=== PATIENT | female | born 1960 | race Caucasian/White ===

== ENCOUNTER 2019-10-17 14:10 | Inpatient (IN) ==
[2019-10-17] MEDS ORDERED: NS 1,000 ML IV ONE ×3 (14:20→15:38)
[2019-10-17] MEDS ORDERED: MAXIPIME 1 GM in NS 50 ML IV ONE (14:29)
[2019-10-17] MEDS ORDERED: VANCOMYCIN 1 GM/NS 1 GM/250 ML IVPB IV ONE (14:29)
[2019-10-17] MEDS ORDERED: OFIRMEV 1000 MG/ISOTONIC SOLN 1,000 MG/100 ML BOTTLE IV ONE (14:41)
--- NOTE | 2019-10-17 14:41 | EKG Report ---
Test Performed on : 10/17/2019 2:31:26 PM Test Reason : AMS Blood Pressure : / mmHG Vent. Rate : 125 BPM Atrial Rate : 125 BPM P-R Int : 144 ms QRS Dur : 100 ms QT Int : 346 ms P-R-T Axes : 000 -60 080 degrees QTc Int : 499 ms Sinus tachycardia. Left anterior fascicular block Inferior infarct , age undetermined ST & T wave abnormality, consider lateral ischemia Abnormal ECG No previous ECGs available Unconfirmed Result
--- NOTE | 2019-10-17 14:54 | Diag Imaging Result Doc PS360 ---
EXAM: CHEST-PORTABLE INDICATION: AMS + FEVER TECHNIQUE: One view COMPARISON: None. FINDINGS: There are a couple of calcified granulomata in the right mid and upper lung zone. The lungs are grossly clear. There is no discrete pleural fluid collection or pneumothorax. The cardiomediastinal silhouette and central vasculature are grossly unremarkable. IMPRESSION: No evidence of acute pathology by plain radiograph. Electronically signed by Gerhard Dennison 10/17/2019 2:51 PM
--- NOTE | 2019-10-17 15:06 | Diag Imaging Result Doc PS360 ---
EXAM: CT HEAD W/O CONTRAST HISTORY: AMS TECHNIQUE: CT head without intravenous contrast COMPARISON: None. FINDINGS: No parenchymal hemorrhage. No epidural or subdural hematoma. No subarachnoid hemorrhage. No mass identified on this noncontrasted exam. No hydrocephalus. No sinus opacification. IMPRESSION: No hemorrhage. Negative brain CT without contrast. This exam was performed using automated exposure control, adjustment of mA or kV according to patient size, and/or use of iterative reconstruction technique. Electronically signed by Jori Bui 10/17/2019 3:04 PM
[2019-10-17 15:32] LABS: URINE SOURCE CATH
[2019-10-17 15:43] LABS: BILIRUBIN URINE NEGATIVE (NEGATIVE); BLOOD URINE NEGATIVE (NEGATIVE); COLOR YELLOW; GLUCOSE URINE NEGATIVE (NEGATIVE); KETONE URINE NEGATIVE (NEGATIVE); LEUKOCYTES URINE SMALL (NEGATIVE); NITRITE URINE NEGATIVE (NEGATIVE); PROTEIN URINE NEGATIVE (NEGATIVE); SP GRAVITY URINE 1.007; TURBIDITY URINE HAZY (CLEAR); UROBILINOGEN URINE NORMAL (NORMAL)
[2019-10-17 15:46] LABS: UR EPITHELIAL CELLS <10 /HPF (<10); URINE BACTERIA 4+ /HPF; URINE RBC <10 /HPF (<10); URINE WBC <10 /HPF (<10)
[2019-10-17 15:46] LABS: BASO# 0.03 X1000 (0.0-0.2); BASO% 0.2 % (0.0-0.8); HEMATOCRIT 47.2 % (37.0-47.0); HEMOGLOBIN 16.2 g/dL (12.0-16.0); IMM GRAN# 0.06 X1000 (0.0-0.04); IMM GRAN% 0.4 % (0.0-0.5); LYMPH# 1.59 X1000 (1.2-3.4); LYMPH% 10.9 % (20.5-51.1); MCH 30.7 PG (27-31); MCHC 34.3 g/dL (33-37); MCV 89.4 FL (81-99); MONO# 0.49 X1000 (0.11-0.59); MONO% 3.4 % (1.7-9.3); MPV 11.8 FL (7.4-10.4); NEUT# 12.44 X1000 (1.4-6.5); NEUT% 85.1 % (42.2-75.2); PLT 248 X1000 (130-400); RBC 5.28 XMIL (4.2-5.4); RDW 13.9 % (11.5-14.5); WBC 14.61 X1000 (4.8-10.8)
[2019-10-17 15:55] LABS: ALB/GLOB RATIO 1.2; ALBUMIN 3.8 g/dL (3.5-5.0); CALCIUM 9.5 mg/dL (8.8-10.2); CREATININE 1.9 mg/dL (0.5-0.9); MAGNESIUM 1.2 mg/dL (1.5-2.7); POTASSIUM 3.2 mmol/L (3.5-5.1); TOTAL BILIRUBIN 0.78 mg/dL (0.20-1.00)
[2019-10-17] MEDS: LEVOPHED 8 MG in D5 1/2 NS 250 ML IV SCH (15:58)
[2019-10-17] MEDS ORDERED: MAGNESIUM SULFATE 4 GM/S.W.I. 4 GM/100 ML IVPB IV ONE (16:11)
[2019-10-17] MEDS ORDERED: NS + KCL 40 MEQ 1,000 ML IV SCH (16:15)
--- NOTE | 2019-10-17 16:32 | PROVIDER DOCUMENTATION ---
This chart was entered by Soledad Pablo Scribe, acting as scribe for Norah Westbrook MD. HPI-General Adult - General Stated Complaint: CONFUSION Time Seen by Provider: 10/17/19 14:10 Source: family, EMS Allergies/Adverse Reactions: Patient Allergies Allergy/AdvReac Type Severity Reaction Status Date / Time No Known Allergies Allergy Verified 03/05/18 09:14 Home Medications: Home Medication List Medication Instructions Recorded Confirmed Last Taken Type Furosemide [Lasix] 40 mg PO DAILY 06/14/16 10/17/19 03/04/18 21:00 History Levothyroxine [Synthroid] 75 microgm PO DAILY 06/14/16 10/17/19 03/04/18 21:00 History Pantoprazole [Protonix] 40 mg PO DAILY 06/14/16 10/17/19 03/04/18 21:00 History Paroxetine [Paxil] 20 mg PO DAILY 06/14/16 10/17/19 03/04/18 21:00 History SIMVAstatin [Zocor] 20 mg PO QHS 06/14/16 10/17/19 03/04/18 21:00 History Sitagliptin Phosphate [Januvia] 100 mg PO DAILY 06/14/16 10/17/19 03/04/18 21:00 History Benztropine Mesylate 1 tab PO BID 10/17/19 10/17/19 Unknown History Calcium Carbonate/Vitamin D3 1 tab PO DAILY 10/17/19 10/17/19 Unknown History [Oyster Shell Calcium-Vit D Tab] Febuxostat 40 mg PO DAILY 10/17/19 10/17/19 Unknown History Montelukast Sodium 1 tab PO QHS 10/17/19 10/17/19 Unknown History Potassium Chloride E.r. [Klor-Con] 2 tab PO DAILY 10/17/19 10/17/19 Unknown History Pregabalin [Lyrica] 1 tab PO QHS 10/17/19 10/17/19 Unknown History Ropinirole HCl 1 tab PO QHS 10/17/19 10/17/19 Unknown History - History of Present Illness -Gen Adult Nature of Presenting Problems: 59 y/o female presents to ED with AMS onset today. Family of pt reports they found her altered in her home. EMS states pt had temperature of 102 en route to ED. Pt is alert and oriented x 0. Location of Pain/Injury: reports: none Pain Radiation: reports: no radiation Quality of Pain: reports: none Severity: reports: moderate Onset/Duration: reports: this morning Timing: reports: still present Context/Activities at Onset: reports: none Modifying Factors: improves with: nothing Associated Symptoms: reports: other (AMS) Similar Symptoms Previously?: No Recently seen or treated by another doctor?: No Review of Systems - Adult - REVIEW OF SYSTEMS - ADULT ROS:: ROS per family Constitutional: reports: other (AMS). denies: chills, fever Eyes: reports: no symptoms reported Ears, Nose, Mouth & Throat: reports: no symptoms reported Cardiovascular: reports: no symptoms reported Respiratory: reports: no symptoms reported Gastrointestinal: reports: no symptoms reported Genitourinary: reports: no symptoms reported Musculoskeletal: reports: no symptoms reported Integumentary: reports: no symptoms reported Neurological: reports: no symptoms reported Psychiatric: reports: no symptoms reported Endocrine: reports: no symptoms reported Hematologic/Lymphatic: reports: no symptoms reported Allergic/Immunologic: reports: no symptoms reported All Other Systems: Reviewed and Negative Past History - Adult - PAST MEDICAL HISTORY-ADULT Review of Records: reports: Old Records Reviewed, Nursing Assessment Review, Medications Reviewed Major Childhood Illnesses: reports: denies history Cardiovascular: reports: HTN Neurological: reports: CVA Endocrine/Immune: reports: Diabetes, thyroid disorder (hypo) - PRIOR SURGERIES/PROCEDURES Surgical/Procedure History: reports: none - IMMUNIZATION STATUS Childhood Immunizations: See Nurse Assessment Flu Vaccine: See Nurse Assessment - FAMILY HISTORY Family History: reviewed, not pertinent - SOCIAL HISTORY Smoking: greater than 1 pack/day Provider spent 3-5 mins advising pt. on dangers of tobacco.: Discussed manners to quit use, and f/u contacts for add'l counseling. Substance Use: none/never Alcohol Use Frequency: never Living Situation: alone Physical Exam-General - PHYSICAL EXAM-ADULT Initial Vital Signs Reviewed: Yes - CONSTITUTIONAL General Appearance: alert, no apparent distress, other (minimal talking; attempts to follow some commands; warm to touch; oriented x 0) - EYES Eyes: PERRL/EOMI, pink conjunctivae - HEAD, EARS, NOSE, MOUTH & THROAT HENMT: normocephalic/atraumatic, moist mucous membranes, normal ENT inspection - NECK Neck: full range of motion - RESPIRATORY Respiratory: lungs clear, normal breath sounds - CARDIOVASCULAR Cardiovascular: normal peripheral pulses, regular rate, rhythm - GASTROINTESTINAL (ABDOMEN) Abdominal Exam: normal bowel sounds, soft - MUSCULOSKELETAL Back Exam: normal inspection Extremity: normal range of motion - SKIN Integumentary: normal color, warm/dry - NEUROLOGIC Neurologic: other (minimal talking; attempts to follow some commands; oriented x 0) - PSYCHIATRIC Psych/Mental Status: other (minimal talking; attempts to follow some commands; oriented x 0) Progress - PLAN OF CARE/RESULTS Progress/Plan/Lab Results: Laboratory Tests 10/17/19 10/17/19 10/17/19 14:27 15:11 15:11 WBC 14.61 H RBC 5.28 Hgb 16.2 H Hct 47.2 H MCV 89.4 MCH 30.7 MCHC 34.3 RDW Std Deviation 13.9 Plt Count 248 MPV 11.8 H Immature Gran % (Auto) 0.4 Neut % (Auto) 85.1 H Lymph % (Auto) 10.9 L [place] % (Auto) 3.4 Eos % (Auto) 0.0 Baso % (Auto) 0.2 Immature Gran # (Auto) 0.06 H Neut # (Auto) 12.44 H Lymph # (Auto) 1.59 [place] # (Auto) 0.49 Eos # (Auto) 0.00 Baso # (Auto) 0.03 Sodium 140 Potassium 3.2 L Chloride 98 Carbon Dioxide 23 L Anion Gap 19 BUN 12 Creatinine 1.9 H Estimated GFR/1.73 m2 27 BUN/Creatinine Ratio 6 Glucose 191 H POC Glucose 198 H Calculated Osmolality 284 Calcium 9.5 Magnesium 1.2 L Total Bilirubin 0.78 AST 27 ALT 13 Alkaline Phosphatase 100 Total Protein 7.0 Albumin 3.8 Globulin 3.2 Albumin/Globulin Ratio 1.2 Plasma Lactate Urine Source Urine Color Urine Turbidity Urine pH Ur Specific [place] Urine Protein Ur Glucose (Stick) Ur Ketones (Stick) Urine Blood Urine Nitrite Urine Bilirubin Urobilinogen Dipstick Urine Leukocytes Urine WBC (Auto) Urine RBC (Auto) U Epithel Cells (Auto) Urine Bacteria (Auto) 10/17/19 10/17/19 15:11 15:25 WBC RBC Hgb Hct MCV MCH MCHC RDW Std Deviation Plt Count MPV Immature Gran % (Auto) Neut % (Auto) Lymph % (Auto) [place] % (Auto) Eos % (Auto) Baso % (Auto) Immature Gran # (Auto) Neut # (Auto) Lymph # (Auto) [place] # (Auto) Eos # (Auto) Baso # (Auto) Sodium Potassium Chloride Carbon Dioxide Anion Gap BUN Creatinine Estimated GFR/1.73 m2 BUN/Creatinine Ratio Glucose POC Glucose Calculated Osmolality Calcium Magnesium Total Bilirubin AST ALT Alkaline Phosphatase Total Protein Albumin Globulin Albumin/Globulin Ratio Plasma Lactate 4.0 H* Urine Source CATH Urine Color YELLOW Urine Turbidity HAZY Urine pH 6.0 Ur Specific [place] 1.007 Urine Protein NEGATIVE Ur Glucose (Stick) NEGATIVE Ur Ketones (Stick) NEGATIVE Urine Blood NEGATIVE Urine Nitrite NEGATIVE Urine Bilirubin NEGATIVE Urobilinogen Dipstick NORMAL Urine Leukocytes SMALL A Urine WBC (Auto) <10 Urine RBC (Auto) <10 U Epithel Cells (Auto) <10 Urine Bacteria (Auto) 4+ Orders Category Date Time Status Nursing [Misc. NRSG Communication Order] DIRECTED Care 10/17/19 14:30 Active Nursing- Obtain EKG ONCE Care 10/17/19 14:22 Active NPO Diet 10/17/19 14:21 Active CHEST-PORTABLE [RAD] Stat Exams 10/17/19 14:[address] HEAD W/O CONTRAST [CT] Stat Exams 10/17/19 14:21 Completed BLOOD CULTURE [BLDCUL] Stat Lab 10/17/19 15:11 Results CBC WITH ELECTRONIC DIFF [HEME] Stat Lab 10/17/19 15:11 Completed CK PROFILE [SP CHEM] Stat Lab 10/17/19 15:11 Received COMPREHENSIVE METABOLIC PANEL [CHEM] Stat Lab 10/17/19 15:11 Completed INFLUENZA SCREEN A/B Stat Lab 10/17/19 16:25 Uncollected LACTATE, PLASMA [CHEM] Q3H Lab 10/17/19 18:11 Uncollected LACTATE, PLASMA [CHEM] Q3H Lab 10/17/19 21:11 Uncollected LACTATE, PLASMA [CHEM] Stat Lab 10/17/19 15:11 Completed MAGNESIUM [CHEM] Stat Lab 10/17/19 15:11 Completed PROCALCITONIN [KU] Stat Lab 10/17/19 16:00 Received PROTIME WITH INR [COAG] Stat Lab 10/17/19 15:11 Received PTT [COAG] Stat Lab 10/17/19 15:11 Received TROPONIN T Stat Lab 10/17/19 15:11 Received URINALYSIS W/POSS RFLX CULT [URINALYSIS] Stat Lab 10/17/19 15:25 Completed URINE CULTURE [RM] Routine Lab 10/17/19 15:25 Received 0.9% Sodium Chloride Inj [Ns] 1,000 ml Med 10/17/19 14:20 Discontinued IV 999 mls/hr 0.9% Sodium Chloride Inj [Ns] 1,000 ml Med 10/17/19 15:25 Discontinued IV 999 mls/hr 0.9% Sodium Chloride Inj [Ns] 1,000 ml Med 10/17/19 15:38 Active IV 999 mls/hr Acetaminophen [Ofirmev 1000 mg/Isotonic Soln] Med 10/17/19 14:41 Discontinued 1,000 mg in 100 ml IV NOW CefEPIME [Maxipime] 1 gm Med 10/17/19 14:29 Discontinued 0.9% Sodium Chloride Inj [Ns] 50 ml IV NOW Dextrose 5%-0.45% NaCl Inj [D5 / Ns] 250 ml Med 10/17/19 15:45 Active Norepinephrine [Levophed] 8 mg IV As Directed mls/hr Magnesium Sulfate 4 gm/S.w.i. [Magnesium Sulfate 4 gm/S Med 10/17/19 16:11 Active .w.i] 4 gm in 100 ml IV NOW Ns + KCl 40 Meq 1,000 ml Med 10/17/19 16:15 Active IV 125 mls/hr Vancomycin 1 gm/Ns Med 10/17/19 14:29 Discontinued 1 gm in 250 ml IV NOW Oxygen Device Stat Oth 10/17/19 15:52 Active EKG [EKG] Stat Ther 10/17/19 14:22 Draft Vital Signs - 24 hr 10/17/19 14:28 10/17/19 15:14 10/17/19 15:30 Temperature 106.0 F H 103.6 F H Pulse Rate 129 H 105 H 100 H Respiratory Rate 42 H 28 H 29 H Blood Pressure 89/61 68/50 62/45 O2 Sat by Pulse Oximetry 90 L 93 L 93 L 10/17/19 15:44 10/17/19 15:46 10/17/19 16:01 Temperature 102.4 F H Pulse Rate 92 H 90 83 Respiratory Rate 25 H 25 H 22 Blood Pressure 55/40 57/40 58/33 O2 Sat by Pulse Oximetry 93 L 94 L 93 L 10/17/19 16:10 10/17/19 16:11 Temperature 100.9 F H 100.8 F H Pulse Rate 80 Respiratory Rate 20 Blood Pressure 84/60 O2 Sat by Pulse Oximetry 98 Result Diagrams: 10/17/19 15:11 10/17/19 15:11 - EKG 1 Time of EKG reading by physician:: 14:31 EKG Read and Signed by:: Norah Westbrook EKG Interpretation (*Must complete 3 of following elements*): Abnormal Rate: 125 Rhythm: Sinus tach [place]: normal QRS: other (L anterior fascicular block; inferior infarct) OR Interval: normal ST Wave: non-specific ST changes (consider lateral ischemia) - XRAY 1 XRAY Study: Chest Impression: See EMR Report ([facility] - [address], [address], [place] [address] [facility] - [address] [place] [address] Department of Imaging Patient: MEREDITH ROSALES Date: 10/17/19#: [id number] : 1960DM Status: PRE ERAcct#: [id number] Age/Sex: 59/FRoom/Bed: Loc: ED Ordering Physician: Norah Westbrook MD Family Physician: Tana Lopes Reason for Procedure: AMS + FEVER Signed EXAM: CHEST-PORTABLE INDICATION: AMS + FEVER TECHNIQUE: One view COMPARISON: None. FINDINGS: There are a couple of calcified granulomata in the right mid and upper lung zone. The lungs are grossly clear. There is no discrete pleural fluid collection or pneumothorax. The cardiomediastinal silhouette and central vasculature are grossly unremarkable. IMPRESSION: No evidence of acute pathology by plain radiograph. Electronically signed by Gerhard Dennison 10/17/2019 2:51 PM 10/17/19 1451 Interpreting Physician: Gerhard Dennison MD Dictated Date/Time: 10/17/19 1450 cc: Norah Westbrook MD; Tana Lopes) - CT/MRI 1 CT Study: Head Impression: See EMR Report - CONSULTS/PCP/HOSPITALIST Notification #1 *Consult/PCP/Hospitalist*: Hospitalist Time Discussed: 16:31 Consult Disposition: Admit Departure - Departure Date of Disposition Decision: 10/17/19 Time of Disposition Decision: 16:31 DIAGNOSIS: UTI (urinary tract infection), Septic shock, Hypokalemia, Hypomagnesemia Sepsis Qualifiers: Sepsis type: sepsis due to unspecified organism Sepsis acute organ dysfunction status: unspecified Qualified Code(s): A41.9 - Sepsis, unspecified organism Disposition: ADMITTED INPATIENT 09 Certified Medical Emergency: Emergent Condition: Serious - Critical Care Note This patient required my direct & personal management of CC.: Yes Total Time (mins): 37 Critical Care Statement: This patient required my direct personal management to treat or rule out processes, the absence of which, could potentiallly result in sudden, clinically significant life or limb threatening deterioration. Attestation - Physician/ IVELISSE Attestation Patient care was provided by Advanced Practice Provider:: No The physician spent face to face time with patient:: Yes Advanced Practice Provider documentation review:: Supervising physician onsite and consulted in the evaluation and care of this patient. The physician did have a face to face encounter with the patient. This chart was documented by the indicated scribe, (Soledad Pablo Scribe) and accurately reflects the services I performed and decisions made by me, Norah Westbrook MD, as attested by the provider's signature.
[2019-10-17 16:46] LABS: INR 1.22; PROTIME 15.6 Seconds (11.0-16.0); PTT 34.7 Seconds (22.3-41.8)
[2019-10-17] MEDS ORDERED: ZOFRAN IV PRN (18:11)
[2019-10-17] MEDS ORDERED: TYLENOL PO PRN (18:11)
[2019-10-17 20:00] LABS: T4 13.83 ug/dL (4.60-12.00)
[2019-10-17] MEDS: SINGULAIR PO SCH (21:00)
[2019-10-17] MEDS ORDERED: PRILOSEC PO SCH (21:00)
[2019-10-17] MEDS: ZOSYN 3.375 GM in NS 50 ML IV SCH (21:05)
[2019-10-17] MEDS: ZYVOX 600 MG/D5W 600 MG/300 ML IVPB IV SCH (21:13)
[2019-10-18] MEDS: LEVOPHED 8 MG in D5 1/2 NS 250 ML IV SCH (00:11)
[2019-10-18] MEDS: PROTONIX IV SCH ×2 (00:25→20:17)
[2019-10-18] MEDS: SODIUM CHLORIDE 0.9% INJ SCH (00:25)
--- NOTE | 2019-10-18 03:51 | HISTORY AND PHYSICAL ---
HISTORY OF PRESENT ILLNESS: Ms. Saeed is a 59-year-old who her mother checks on her every day, was fine yesterday, apparently normal state of health. She is wheelchair bound because of a CVA. She came in this morning and she was stooped over, not very responsive, very lethargic, and she continued to stay very drowsy. When she came into the emergency room this afternoon, her temperature was 106 degrees. They deny any signs of chest pain or other earlier signs of fever or chills. No sign of seizures or tonic-clonic activity or incontinence of bowel or bladder. PAST MEDICAL HISTORY: 1. Hyperglycemia. She has diabetes mellitus type 2, controlled on diet. Her mother checks her sugars. 2. Hypertriglyceridemia. 3. Postmenopausal. 4. She does smoke, tobacco dependence. 5. Depression. Mother says she had a breakdown about 32 years ago, a mental breakdown. 6. Diabetes mellitus type 2. 7. Apparently she has a history of heart disease. I do not know what all that entails. 8. I think she has hypothyroidism. 9. Interstitial cystitis. 10. Osteoporosis. 11. She has had a CVA, she had a large CVA, and she collapsed in the bathroom a couple years ago and then had another small one I think last summer. PAST SURGICAL HISTORY: Status post cholecystectomy, status post hysterectomy. ALLERGIES: The patient has no known drug allergies. FAMILY HISTORY: They deny any known history of cardiac, renal, pulmonary, any specific illnesses. REVIEW OF SYSTEMS: Mainly obtained from the mother.General: Before today, no fever or chills that she noted, was in normal state of health. HEENT: No change in visual or hearing acuity. Respiratory: No increased work of breathing or dyspnea or cough. Cardiovascular: No chest pain or tachy palpitation. Gastrointestinal/Genitourinary: She does not know of any change in her bowels or bladder. No gross hematuria, no gross hematochezia. Musculoskeletal/Neurologic: No focal complaints. PHYSICAL EXAMINATION: VITAL SIGNS: Today in the emergency room, temperature 99.5 degrees. When she first came in it was 106. Pulse 80, respirations 22, blood pressure 82/51. HEENT: Pupils are equal. Oral and nasal mucosa unremarkable. GENERAL: She is still very lethargic. She is arousable. She will answer simple questions. She does not know where she is. She is oriented to person only. I do not see any focal neurologic deficits, but she is very lethargic. Pulse 80, respirations 20, blood pressure 82/51. They did start her on Levophed. Weight is 185 pounds, height 5 feet 4 inches. LUNGS: Clear anterolateral. CARDIOVASCULAR: Regular rhythm and rate. No distended neck veins. She has been told that I think her right carotid was 100% occluded. I do not hear any bruits on the left. ABDOMEN: Soft, nondistended, nontender. Positive bowel sounds. No pedal edema. SKIN: No skin rashes appreciated. NECK: Supple. No adenopathy or thyromegaly. LABORATORY DATA: White count is 14,610, hematocrit 47, platelet count 248,000. Sodium 140, potassium 3.2, chloride 98, BUN 12, creatinine 1.9, blood sugar was 191, calcium 9.5, AST 27, ALT 13, alkaline phosphatase was 100, albumin 3.8. Lactate level is high at 4. Prothrombin time 15.6, PTT was 34. Urinalysis unremarkable. Chest x-ray, no evidence of acute pathology. No sign of infiltrate. Head CT without contrast, no hemorrhage. Negative brain CT. Her urine was 4+ bacteria, less than 10, no white blood cells. The patient was given some magnesium, started on norepinephrine or Levophed and given some potassium as well. ASSESSMENT AND PLAN: 1. Appears to be sepsis with infection, urinary tract. She has 4+ bacteria. I do not see any other source at this point. We will put her on broad-spectrum antibiotic. She has no known drug allergies, so I will plan to probably put her on Zosyn. Actually, I will use Zosyn and Zyvox. Her creatinine was 1.9. 2. Acute kidney injury. Looking at her previous creatinine, I do not know that we have any measurements of it, but it was at 1.9, and I am assuming represents some acute kidney injury. 3. Hypotension, elevated lactate consistent with sepsis. We are going to need to give her quite a bit of volume. She does not have a history of congestive heart failure that I am aware of, so we will run fluids at 125 mL an hour. They are using Levophed right now to help keep systolic pressure greater than 90. 4. History of cerebrovascular accidents. She apparently she has 100% right carotid blockage. 5. Diabetes mellitus type 2. We will check pattern sugars. 6. History of hypertension. 7. History of primary hypothyroidism. We will check T4 and TSH and give her thyroid IV, thyroid supplement IV. 8. She has a history of mental breakdown and is on medications for her depression. MEDICATIONS: Her medications at home, she is on Januvia 100 mg daily; we will hold that for now. She is on Synthroid 75 mcg a day. She is on febuxostat 40 degrees mg daily. She takes Paxil 20 mg a day, Lyrica 1 tablet every night at bedtime, ropinirole 1 tablet every night at bedtime, Zocor 20 mg every night at bedtime. LABS TO OBTAIN: On her lab, we need to check a urine drug screen. I am going to check ammonia level, T4, TSH, B12 and folate. We will get a renal ultrasound in the morning. We will obtain blood cultures and urine culture. cc: Rex Grissom MD
[2019-10-18] MEDS: ZOSYN 3.375 GM in NS 50 ML IV SCH ×4 (04:33→22:53)
[2019-10-18] MEDS: SYNTHROID PO SCH (06:10)
[2019-10-18] MEDS: ZYVOX 600 MG/D5W 600 MG/300 ML IVPB IV SCH ×2 (06:10→17:42)
[2019-10-18 06:38] LABS: BASO# 0.04 X1000 (0.0-0.2); BASO% 0.2 % (0.0-0.8); EOS# 0.03 X1000 (0.0-0.7); EOS% 0.2 % (0.0-10.0); HEMATOCRIT 39.6 % (37.0-47.0); HEMOGLOBIN 13.7 g/dL (12.0-16.0); IMM GRAN# 0.06 X1000 (0.0-0.04); IMM GRAN% 0.3 % (0.0-0.5); LYMPH% 22.7 % (20.5-51.1); MCH 31.1 PG (27-31); MCHC 34.6 g/dL (33-37); MCV 89.8 FL (81-99); MONO% 11.6 % (1.7-9.3); MPV 11.6 FL (7.4-10.4); NEUT# 11.18 X1000 (1.4-6.5); PLT 218 X1000 (130-400); RBC 4.41 XMIL (4.2-5.4); RDW 13.7 % (11.5-14.5); WBC 17.21 X1000 (4.8-10.8)
[2019-10-18 06:58] LABS: ALB/GLOB RATIO 1.3; ALBUMIN 3.4 g/dL (3.5-5.0); CREATININE 1.3 mg/dL (0.5-0.9); MAGNESIUM 2.2 mg/dL (1.5-2.7); TOTAL BILIRUBIN 0.73 mg/dL (0.20-1.00)
[2019-10-18 07:05] LABS: CALCIUM 7.4 mg/dL (8.8-10.2); POTASSIUM 2.7 mmol/L (3.5-5.1)
--- NOTE | 2019-10-18 07:19 | EKG Report ---
Test Performed on : 10/18/2019 06:57:41 AM Test Reason : chest pain Blood Pressure : / mmHG Vent. Rate : 069 BPM Atrial Rate : 069 BPM P-R Int : 186 ms QRS Dur : 104 ms QT Int : 584 ms P-R-T Axes : 043 -42 039 degrees QTc Int : 625 ms Critical Test Result: Long QTc Sinus rhythm. with premature atrial complexes. Left axis deviation Nonspecific T wave abnormality Prolonged QT Abnormal ECG When compared with ECG of 17-OCT-2019 14:31, (Unconfirmed) Significant changes have occurred Confirmed by Josiah ADHIKARI, Deric Lewis ([id number]) on 10/21/2019 9:26:58 AM
--- NOTE | 2019-10-18 07:30 | Diag Imaging Result Doc PS360 ---
EXAM: CHEST-PORTABLE INDICATION: sepsis TECHNIQUE: One view COMPARISON: 10/17/2019 FINDINGS: The lungs remain grossly clear. No new consolidation is identified. There is no discrete pleural fluid collection or pneumothorax. Cardiac silhouette is stable. IMPRESSION: Stable chest with no definite acute pathology by plain radiograph. Electronically signed by Gerhard Dennison 10/18/2019 7:27 AM
[2019-10-18] MEDS ORDERED: PROTONIX PO SCH (09:00)
[2019-10-18] MEDS: KLOR-CON PO SCH (09:03)
--- NOTE | 2019-10-18 13:56 | PROGRESS NOTE ---
DATE: 10/18/2019 Ms. Saeed feels much better. She is awake and alert. She is requesting food. She is hungry. OBJECTIVE: She remains afebrile, temperature 97.9 degrees, pulse 59, respirations 20, blood pressure 103/53. Pupils are equal and round.Lungs: Clear in all lung helms. Cardiovascular: Regular rhythm and rate without murmur or S3. Abdomen: Soft. Skin: Warm and dry. Urine output was almost 6000 mL. Chest x-ray from this morning stable chest with no definite acute pathology. Her urine culture grew out a gram negative ange greater than 100,000. I am going to get a renal ultrasound on her. Plan to advance her diet. She presented with sepsis. I guess it most likely is urosepsis. She was given some cefepime and then we put her on Zosyn. She appears euthyroid. She is on her Synthroid 75 mcg a day. cc: Rex Grissom MD
--- NOTE | 2019-10-18 16:17 | Diag Imaging Result Doc PS360 ---
EXAM: US RENAL 2 (RETROPER) COMPLETE 10/18/2019 HISTORY: presented with urosepsis TECHNIQUE: Renal ultrasound COMMENT: The kidneys are without evidence of hydronephrosis stones or mass. There is no dilatation of the urinary bladder as there is a catheter in place. The right kidney is 11.1 x 4.8 x 4 cm the left is 9.4 x 3.9 x 5.3 cm. IMPRESSION: No evidence of obstructive uropathy or other definite abnormality. Electronically signed by Dario Lares 10/18/2019 4:14 PM
--- NOTE | 2019-10-18 16:37 | ECHO REPORT ---
ORDER DATE: 10/18/2019 PROCEDURE: 2D echocardiogram. INTERPRETING PHYSICIAN: Dr. Cardenas. ECHOCARDIOGRAPHIC MEASUREMENTS: 1. Interventricular septum 0.9. 2. Left ventricular posterior wall 0.8. 3. Diastolic diameter 4.8 cm. 4. Left atrium 3.8 cm. 5. RV 3.4 cm. SUMMARY OF THE 2-DIMENSIONAL IMAGIN. Normal left ventricular cavity size. Estimated ejection fraction of 65%. 2. Normal right ventricular cavity size and function. 3. Aortic valve leaflets were trileaflet. 4. Pulmonic valve was normal. 5. Mitral valve was normal. 6. There is no aortic stenosis or regurgitation. There is mild mitral regurgitation. 7. Mild tricuspid regurgitation. Peak velocity across the tricuspid valve was less than 2 m/sec. 8. Peak velocity across the aortic valve less than 2 m/sec. There is no aortic stenosis or regurgitation. 9. Anterior echo-free space with history of pericardial fat pad noted. There is no pericardial effusion or obvious intracardiac mass or thrombus seen. There is mild mitral regurgitation. 10. There is lipomatous hypertrophy of the interatrial septum. cc: MD Rex Rivas MD
[2019-10-18] MEDS: SINGULAIR PO SCH (20:17)
[2019-10-19] MEDS: ZOSYN 3.375 GM in NS 50 ML IV SCH ×3 (05:57→16:52)
[2019-10-19] MEDS: ZYVOX 600 MG/D5W 600 MG/300 ML IVPB IV SCH (05:58)
[2019-10-19] MEDS: SYNTHROID PO SCH (06:08)
[2019-10-19 07:09] LABS: CALCIUM 7.6 mg/dL (8.8-10.2); CREATININE 1.1 mg/dL (0.5-0.9); MAGNESIUM 1.9 mg/dL (1.5-2.7); POTASSIUM 3.5 mmol/L (3.5-5.1)
[2019-10-19 07:38] LABS: BASO# 0.02 X1000 (0.0-0.2); BASO% 0.2 % (0.0-0.8); EOS# 0.13 X1000 (0.0-0.7); EOS% 1.6 % (0.0-10.0); HEMATOCRIT 35.1 % (37.0-47.0); HEMOGLOBIN 11.7 g/dL (12.0-16.0); LYMPH# 2.16 X1000 (1.2-3.4); LYMPH% 26.4 % (20.5-51.1); MCH 30.8 PG (27-31); MCHC 33.3 g/dL (33-37); MCV 92.4 FL (81-99); MONO# 0.69 X1000 (0.11-0.59); MONO% 8.4 % (1.7-9.3); MPV 11.3 FL (7.4-10.4); NEUT# 5.18 X1000 (1.4-6.5); NEUT% 63.4 % (42.2-75.2); PLT 144 X1000 (130-400); RDW 14.2 % (11.5-14.5); WBC 8.18 X1000 (4.8-10.8)
[2019-10-19] MEDS: KLOR-CON PO SCH (09:20)
--- NOTE | 2019-10-19 12:14 | PROGRESS NOTE ---
DATE: 10/19/2019 Ms. Saede is doing better. She remains afebrile. She is off of Levophed. OBJECTIVE: Vital Signs: Pulse is 67, respirations 24 and blood pressure 115/68 . HEENT: Pupils are equal and round. Lungs: Are clear in all lung helms. Cardiovascular: Regular rhythm and rate without murmur or S3. Abdomen: Is soft. Skin: Is warm and dry. Urine output is 1200 mL. Blood sugar 137, 105, 105. ASSESSMENT AND PLAN: Presented which appeared to be sepsis. It appeared it was urosepsis. We have not found another source. Her renal ultrasound, which was done yesterday, no evidence of obstructive uropathy or perinephric abscess. Her echocardiogram with Doppler, there was anterior echo-free space, history of pericardial fat pad noted. Left ventricle looked good. Good ejection fraction 65%. Normal right ventricular cavity and function and no valvular dysfunction. No vegetations. So, I think she can move to the floor and continue linezolid 600 mg IV q.12. She is off of the Levophed. Her cultures from the urine grew out Klebsiella and it was sensitive to cefazolin. It is negative for extended spectrum beta lactamase and is sensitive to Levaquin. So what I will do is I am going to stop her linezolid and we will put her on Levaquin p.o. 500 mg daily. Though she has a history of primary hypothyroidism she is on her Synthroid and her thyroid levels look good. She actually had a T4 of 13.83 and her TSH level was 0.65. I think we will repeat those. cc: Rex Grissom MD
[2019-10-19] MEDS ORDERED: SODIUM CHLORIDE 0.9% 10 ML ONE (20:05)
[2019-10-19] MEDS: PROTONIX IV SCH (20:14)
[2019-10-19] MEDS: SINGULAIR PO SCH (20:15)
[2019-10-19] MEDS: SODIUM CHLORIDE 0.9% INJ SCH (20:16)
[2019-10-20] MEDS: ZOSYN 3.375 GM in NS 50 ML IV SCH ×4 (00:14→20:57)
[2019-10-20] MEDS: SYNTHROID PO SCH (06:29)
[2019-10-20 08:16] LABS: BASO# 0.02 X1000 (0.0-0.2); BASO% 0.3 % (0.0-0.8); EOS# 0.12 X1000 (0.0-0.7); EOS% 1.5 % (0.0-10.0); HEMATOCRIT 37.3 % (37.0-47.0); HEMOGLOBIN 12.3 g/dL (12.0-16.0); LYMPH# 2.06 X1000 (1.2-3.4); LYMPH% 26.4 % (20.5-51.1); MCH 30.8 PG (27-31); MCV 93.3 FL (81-99); MONO# 0.59 X1000 (0.11-0.59); MONO% 7.6 % (1.7-9.3); MPV 11.3 FL (7.4-10.4); NEUT# 5.01 X1000 (1.4-6.5); NEUT% 64.2 % (42.2-75.2); PLT 165 X1000 (130-400); RDW 14.1 % (11.5-14.5)
[2019-10-20 08:36] LABS: ALB/GLOB RATIO 1.2; ALBUMIN 3.1 g/dL (3.5-5.0); CALCIUM 8.6 mg/dL (8.8-10.2); CREATININE 1.1 mg/dL (0.5-0.9); POTASSIUM 3.8 mmol/L (3.5-5.1); TOTAL BILIRUBIN 0.61 mg/dL (0.20-1.00); TOTAL PROTEIN 5.6 g/dL (6.3-8.3)
[2019-10-20 08:55] LABS: FREE T4 1.59 ng/dL (0.93-1.70); TSH 3.04 uIUmL (0.27-4.20)
[2019-10-20] MEDS: KLOR-CON PO SCH (09:06)
--- NOTE | 2019-10-20 16:05 | PROGRESS NOTE ---
DATE: 10/20/2019 Mrs. Saeed is feeling much better. Her daughter, I think, is at bedside. She is getting stronger. They do want to pursue going to think about physical therapy. Actually, I think it may have been a sitter that was there and not family. OBJECTIVE: She remains afebrile, temperature 98.4 degrees, pulse 61, respirations 16, blood pressure 119/54. Pupils are equal and round.Lungs: Clear in all lung helms. Cardiovascular: Regular rhythm and rate without murmur or S3. Input and Output: Urine output was 3000 mL. Blood sugars 105, 109, 91, 114. ASSESSMENT AND PLAN: Appears to present with urosepsis. She is doing much better. Continue current antibiotics. I did an ultrasound of the kidneys. There was no sign of obstruction or perinephric abscess. She had a gram-negative ange that was growing Klebsiella pneumonia and it was sensitive to cefazolin. We will get Social Service to look for rehab potentials. She is on Zosyn 3.375 g IV q. 6. Also has a history of primary hypothyroidism. She is on 75 mcg of Synthroid daily and we will change the Protonix to p.o. instead of IV 40 mg daily. cc: Rex Grissom MD
[2019-10-20] MEDS: SINGULAIR PO SCH (20:57)
[2019-10-21] MEDS: ZOSYN 3.375 GM in NS 50 ML IV SCH ×5 (03:03→22:31)
[2019-10-21] MEDS: SYNTHROID PO SCH (06:23)
[2019-10-21] MEDS: PROTONIX PO SCH (06:23)
--- NOTE | 2019-10-21 08:58 | PROGRESS NOTE ---
DATE: 10/21/2019 SUBJECTIVE: She was sleeping, easy to arouse. She had family there at the bedside. OBJECTIVE: Vital Signs: Temperature 98.1 degrees, pulse 60, respirations 20, blood pressure 135/50. Eyes: Pupils are equal and round. Lungs: Lungs are clear anterolateral. Cardiovascular exam: Regular rhythm and rate without murmur or S3. Abdomen: Abdomen is soft, nondistended. Skin: Skin is warm and dry. : Urine output was 2200 mL. ASSESSMENT AND PLAN: She presented with urosepsis and has remained afebrile. I did a renal ultrasound, did not find any obstruction or perinephric abscess, and she is showing steady improvement, but very weak. She has some underlying cognitive decline and would benefit from physical therapy. REVIEW OF ORDERS: She is on Singulair 10 mg at bedtime, she is on Synthroid 75 mcg a day, Protonix 40 mg p.o. daily, Zosyn 3.375 g IV q. 6 hours. I think she has finished antibiotic treatment. She had Klebsiella pneumonia grown out of the urine. Blood cultures were negative. Klebsiella pneumoniae was sensitive to cefazolin, so I think she has had pretty good treatment. I probably will set her up for another week of p.o. antibiotics, and we will get Social Service to look. They would like to go to rehab facility for a couple weeks. cc: Rex Grissom MD
[2019-10-21] MEDS: KLOR-CON PO SCH (09:05)
[2019-10-21] MEDS: SINGULAIR PO SCH (20:46)
[2019-10-22] MEDS: ZOSYN 3.375 GM in NS 50 ML IV SCH ×4 (04:55→23:56)
[2019-10-22] MEDS: PROTONIX PO SCH (06:19)
[2019-10-22] MEDS: SYNTHROID PO SCH (06:19)
[2019-10-22] MEDS: KLOR-CON PO SCH (11:43)
--- NOTE | 2019-10-22 16:48 | PROGRESS NOTE ---
DATE: 10/22/2019 SUBJECTIVE: Ms. Saeed feels better. She is more awake and alert. Still very weak. OBJECTIVE: Vital signs: She remains afebrile, temperature 98.5 degrees, pulse 70, respirations 20, blood pressure 100/68. HEENT: Pupils are equal and round. Lungs: Clear in all lung helms. Cardiovascular: Regular rhythm and rate without murmur or S3. Urine output was almost 4000 mL. ASSESSMENT AND PLAN: 1. Presented with urosepsis. Urinary tract infection is well treated. There was no sign of obstruction or perinephric abscess on renal ultrasound. She has gram-negative that grew out Klebsiella pneumonia and it was sensitive to cefazolin. So, she is improving. She is on Zosyn 3.375 g q.6. 2. General weakness, deconditioning. 3. Some cognitive decline which is nothing new. Very cooperative. Her echocardiogram shows a good left ventricular function, ejection fraction 65%. 4. History of hypothyroidism. She is on Synthroid. We had checked her T4 and TSH and they are within normal limits. REVIEW OF ORDERS: I do not see any change. Hoping to get her into rehab if she is eligible. cc: Rex Grissom MD
[2019-10-22] MEDS: SINGULAIR PO SCH (21:04)
[2019-10-23] MEDS: PROTONIX PO SCH (06:15)
[2019-10-23] MEDS: ZOSYN 3.375 GM in NS 50 ML IV SCH ×4 (06:15→23:33)
[2019-10-23] MEDS: SYNTHROID PO SCH (06:16)
--- NOTE | 2019-10-23 09:25 | PROGRESS NOTE ---
DATE: 10/23/2019 SUBJECTIVE: Ms. Saeed is comfortable, had a pretty good night. She is still pretty weak. We are waiting to see if she is eligible for rehab. OBJECTIVE: Vital Signs: She remains afebrile, temperature 98.2 degrees, pulse 80, respirations 20, blood pressure 163/72. HEENT: Pupils are equal and round. Lungs: Clear in all lung helms. Cardiovascular: Regular rhythm and rate without murmur or S3. Abdomen: Soft. Skin: Warm and dry. Urine output is 5800 mL. ASSESSMENT AND PLAN: 1. Presented with urosepsis, and has been well treated. She is still pretty weak. I would like to get her to physical therapy. 2. General weakness and deconditioning. Looking for rehab opportunities. 3. Cognitive decline, which is nothing new. She is very cooperative. 4. Good left ventricular ejection fraction, good left ventricular performance. 5. History of hypothyroidism. T4 and TSH are well within normal limits. She appears euthyroid. cc: Rex Grissom MD
[2019-10-23] MEDS: KLOR-CON PO SCH (10:40)
[2019-10-23] MEDS: SINGULAIR PO SCH (21:13)
[2019-10-24] MEDS: ZOSYN 3.375 GM in NS 50 ML IV SCH ×2 (05:52→10:21)
[2019-10-24] MEDS: PROTONIX PO SCH (06:10)
[2019-10-24] MEDS: SYNTHROID PO SCH (06:10)
[2019-10-24] MEDS: KLOR-CON PO SCH (10:18)
--- NOTE | 2019-10-24 10:53 | DISCHARGE SUMMARY ---
ADMISSION DATE: 10/17/2019 DISCHARGE DATE: 10/24/2019 HISTORY AND HOSPITAL COURSE: This is 59-year-old who her mother checks on her almost every day, actually her daughter checks on her almost every day. She was fine the day before, apparently in normal state of health. She is wheelchair bound because of CVA. She came in the morning, stooped over, very unresponsive, lethargic, continues to stay very drowsy. Blood pressure was low and appears she had urosepsis. PAST MEDICAL HISTORY: 1. Hyperglycemia. 2. Hypertriglyceridemia. 3. Postmenopausal. 4. She does smoke, tobacco-dependent. 5. Depression. Mother says she had a breakdown about 32 years ago, a mental breakdown. 6. Diabetes mellitus type 2. 7. She has a history of heart disease. 8. I think she has history of hypothyroidism. 9. Interstitial cystitis. 10. Osteoporosis. 11. Had a CVA. She has had a large CVA. She had collapsed in the bathroom a couple years ago and suffered a stroke. PAST SURGICAL HISTORY: Status post cholecystectomy, status post hysterectomy. So admission diagnosis appeared to be hypotensive with sepsis from urinary tract infection, suspect pyelonephritis. I did check a renal ultrasound. She had no perinephric abscess or obstruction. Her cultures grew out Klebsiella pneumoniae, and it was sensitive to cefazolin. She was treated with ceftriaxone. Infection cleared up. She was awake and eating and they wanted to go home. Encouraged them to continue some physical therapy. DISCHARGE ORDERS: Synthroid 75 mcg a day, Singulair 10 mg at bedtime. We can stop her antibiotic, and I think at home she takes benztropine 1 tablet b.i.d., she takes oyster shell calcium with vitamin D 1 a day. She takes febuxostat 40 degrees mg daily, Lasix 40 mg a day and I think she was taking potassium ER was Klor-Con 2 tablets a day, Lyrica 1 tablet at bedtime, simvastatin 20 mg at bedtime, and Januvia 100 mg daily. We will continue all those. Will get home health and continue physical therapy. cc: Rex Grissom MD
[2019-10-24 13:24] VITALS: BP 131/51
--- NOTE | 2019-10-24 14:03 | DISCHARGE SUMMARY ---
ADMISSION DATE: 10/17/2019 DISCHARGE DATE: 10/24/2019 ADDENDUM: See the discharge I did this morning. She was admitted on 10/17/2019, discharged on 10/24/2019. She had decided they wanted to go to rehab, and a bed had opened up, so instead of going home, she will go to rehab with the same discharge orders and medications. cc: Rex Grissom MD
== END 2019-10-24 15:43 | DRG 872 ==
LOC: SUPCPDRO → ED 14:10 → EDIPHOLD 17:34 → ICU 10-18 03:12 → 3N 10-19 15:01
PROVIDERS: ATTEND Emergency Medicine